=== PATIENT | female | born 1980 | race Caucasian/White ===

== ENCOUNTER 2021-11-11 10:53 | Emergency (ER) | payer BC, SELFPAY ==
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
[2021-11-11 11:13] VITALS: BP 135/92; PULSE 81; RESP 16; TEMP 36; O2SAT 100
[2021-11-11] MEDS: TETANUS,DIPHTHERIA,AC PERTUSSIS ADULT (0.5 ML) BOOSTRIX IM (11:25)
== END 2021-11-11 11:52 | disposition home or self-care (01) ==
PROVIDERS: Emergency Provider Nurse Practitioner Family
DX: S91.032A Puncture wound without foreign body, left ankle, initial encounter (principal); W22.8XXA Striking against or struck by other objects, initial encounter; Z23 Encounter for immunization
CPT/HCPCS: 90471; 90715; 99213; G0463

== ENCOUNTER → 2022-06-03 09:31 | Outpatient (CLI) | payer BC, SELFPAY ==
--- NOTE | ~2022-06-03 | MMUS_ITS ---
EXAMINATION: MM diagnostic olivia BI w imtiaz, US breast BI complete HISTORY: Breast soreness. Bilateral upper outer densities. TECHNIQUE: Additional 3-D tomosynthesis images of the breasts were performed and synthetic 2-D images were generated. CAD analysis was submitted and interpreted. High resolution bilateral complete breas t ultrasound was performed. COMPARISON: None BREAST PARENCHYMAL COMPOSITION: The breasts are extremely dense, which lowers the sensitivity of mamm ography FINDINGS: MAMMOGRAPHIC FINDINGS: There are no discrete masses, calcifications or architectural distortion in either breast to suggest malignancy. ULTRASOUND: Complete bilateral US of all 4 quadrants of the breasts and retroareolar region was reviewed. Right breast: There are multiple simple and complicated cysts of the right breast. At 2:00, 4 cm from the nipple there is a cluster of microcysts measuring 6 mm in aggregate. There are no suspicious mas ses in the right breast to suggest malignancy. Left breast: Are multiple simple and complicated cyst of the left breast. At 10:00, 5 cm from the nip ple there is a hypoechoic mass with some irregular margins, parallel orientation, no posterior acoust ic enhancement or internal vascularity measuring 4 x 3 x 4 mm likely benign. IMPRESSION: 1. No evidence for malignancy in the right breast. Probable benign left breast mass by ultrasound madisyn suring 4 mm at 10:00, 5 cm from the nipple. 2. Recommend 6 month follow-up Limited left breast ultrasound BI-RADS category 3, probably benign findings. Reviewed, dictated and finalized at [facility]. [employer]IXER OPERATOR IMPRESSION: 1. No evidence for malignancy in the right breast. Probable benign left breast mass by ultrasound measuring 4 mm at 10:00, 5 cm from the nipple. 2. Recommend 6 month follow-up Limited left breast ultrasound BI-RADS category 3, probably benign findings.
== END ==
PROVIDERS: Visit Provider Nurse Practitioner
DX: N63.22 Unspecified lump in the left breast, upper inner quadrant (principal); N60.12 Diffuse cystic mastopathy of left breast; N64.59 Other signs and symptoms in breast
CPT/HCPCS: 76641; 77062; 77066; G0279

== ENCOUNTER → 2023-02-26 11:15 | Outpatient (CLI) | payer BC, SELFPAY ==
--- NOTE | ~2023-02-26 | US_ITS ---
US breast LT limited DATE: 02/26/2023 11:37 INDICATION: Short-term follow-up of left breast o'clock sonographic lesion 5 cm from nipple TECHNIQUE: Real-time imaging and color flow imaging targeted at left breast 10:00 5 cm from nipple COMPARISON: 06/03/2022 diagnostic mammogram and breast ultrasound examination FINDINGS: There is an irregular hypoechoic solid approximately 3 x 5.7 x 6.8 mm mass. The margins are irregular. Some of the margin is not completely circumscribed. This is increased mildly in size sinc e 06/03/2022, which time it was reported at 4 x 3 x 4 mm size. IMPRESSION: Suspicious irregular hypoechoic solid mass of left breast at 10:00 5 cm from nipple Recommendation: Ultrasound-guided biopsy of left breast 10:00 lesion BI-RADS Category 4: Suspicious abnormality; biopsy should be considered Dr. Day telephoned the report and ultrasound-guided biopsy recommendation of left breast 10 o'clock lesion on 02/26/2023 at 1145 hours to A [employer] Ivett Reviewed, dictated and finalized at [facility]. Reviewed, dictated and finalized at [facility]. IMPRESSION: Suspicious irregular hypoechoic solid mass of left breast at 10:00 5 cm from nipple Recommendation: Ultrasound-guided biopsy of left breast 10:00 lesion BI-RADS Category 4: Suspicious abnormality; biopsy should be considered Dr. Day telephoned the report and ultrasound-guided biopsy recommendation of l eft breast 10 o'clock lesion on 02/26/2023 at 1145 hours to A Class Lineman Me payne
== END ==
PROVIDERS: PCP Nurse Practitioner; Visit Provider Nurse Practitioner
DX: N63.20 Unspecified lump in the left breast, unspecified quadrant (principal); R92.8 Other abnormal and inconclusive findings on diagnostic imaging of breast
CPT/HCPCS: 76642